=== PATIENT | female | born 1985 | race Caucasian/White ===

== ENCOUNTER 2020-11-05 22:09 | Emergency (ER) | payer OTHER, SELFPAY ==
[2020-11-05 23:02] VITALS: BP 121/77; PULSE 97; RESP 18; O2SAT 99; BMI 25.8
[2020-11-06 01:39] VITALS: RESP 18
--- NOTE | 2020-11-06 02:43 | ED_ITS ---
HPI - Animal Bite General Chief Complaint: Animal Bite Stated Complaint: DOG ATTACK Time Seen by Provider: 11/06/20 02:30 Source: patient Mode of arrival: ambulatory Limitations: no limitations History of Present Illness HPI narrative: Patient comes to emergency room complaining of multiple dog bites. Patient states she works for [employer], she was attacked by a dog in someone's house. Patient states that she does have the address of the place where she got bitten, however while she was being attacked, the dog owners were not either at home, or did not, out to stop the dog attack. Patient was able to free herself, came to the emergency room. Patient complaining of multiple bite wounds to the back of her legs. Patient is not sure when she got her last tetanus shot MD complaint: animal bite Related Data Previous Rx's Medication Instructions Recorded doxycycline hyclate 100 mg PO BID #19 cap 11/06/20 metronidazole 500 mg PO BID #19 tab 11/06/20 Allergies Allergy/AdvReac Type Severity Reaction Status Date / Time amoxicillin Allergy Rash Verified 11/05/20 23:04 Review of Systems Review of Systems: Constitutional : No Weight loss, No Fever, No Chills, No Night Sweats, No Fatigue, No Malaise ENT/Mouth : No Hearing loss, No Ear Pain, No Nasal Congestion, No Sinus Pain, No Hoarseness, No sore throat, No Rhinorrhea, No Swallowing Difficulty Eyes: No Eye Pain, No Swelling, No Redness, No Foreign Body, No Discharge, No Vision Changes Cardiovascular : No Chest Pain, No SOB, No Dyspnea on Exertion, No Orthopnea, No Edema, No Palpitations Respiratory : No Cough, No Sputum, No Wheezing, No Smoke Exposure, No Dyspnea Gastrointestinal : No Nausea, No Vomiting, No Diarrhea, No Constipation, No abdominal Pain, No Hematochezia, No Melena Genitourinary : no irregular bleeding, No Dysuria, No Urinary Frequency, No Hematuria, No Urinary Incontinence, No Urgency, No Flank Pain, No Urinary Flow Changes, No Hesitancy Musculoskeletal : No joint pain, No Myalgias, No Joint Swelling Skin : Dog bites to the back of both legs Neuro : No Weakness, No Numbness, No Paresthesias, No Loss of Consciousness, No Dizziness, No Headache Psych : No Anxiety/Panic, No Depression, No SI/HI/AH/VH, No Social Issues, Heme/Lymph: No Bruising, No Bleeding,No Lymphadenopathy Endocrine : No Polyuria, No Polydipsia, No Temperature Intolerance PMFSH Past Medical History Medical History No known health problems Social History Social History Smoking Status: Unknown if ever smoked Advance Directives: No Physical Exam Vital Signs: Vital Signs: Last Vital Signs Pulse 97 11/05/20 23:02 Resp 18 11/06/20 01:39 BP 121/77 11/05/20 23:02 Pulse Ox 99 11/05/20 23:02 Body Mass Index 25.8 Appearance: Alert. Oriented X3. No acute distress. Eyes: Pupils equal, round and reactive to light. ENT: Pharynx normal. Neck: Normal inspection. Neck supple. No lymph nodes noted. No crepitus CVS: Normal heart rate and rhythm. Pulses normal. Normal S1 and S2 Respiratory: No respiratory distress. Breath sounds normal. No Wheezing. No rales Abdomen: Soft and nontender. No rigidity. No distention. good BS x4 Skin: Patient has multiple dog bites to the back of the left leg and the right leg, accompanied by ecchymosis. Extremities: No lower extremity edema. No lower extremity edema. No Lacerations. No Rash Neuro: Oriented X 3. No motor deficit. No sensory deficit. Moving all extermities. No slurred speech. Course Course Course Narrative: I discussed with the patient that although she has the address of where the dog attack occurred, it is possible that the dog might not be available for quarantine for any reason such as the owners hiding the dog. Therefore, I recommended to the patient to get rabies immune globulin as well as the vaccine, tetanus shot, and antibiotics. Patient agrees with plan Patient is allergic to penicillin, Augmentin was not prescribed, instead, patient was given metronidazole and doxycycline and a prescription as well. Per nursing, Patient was given all information to follow up for the rest of her previous immunizations. Discharge Plan Discharge Clinical Impression: Dog bite Qualifiers: Encounter type: initial encounter Qualified Code(s): W54.0XXA - Bitten by dog, initial encounter Patient Disposition: Home, Self-Care Instructions: Rabies Vaccine (By injection) Additional Instructions: Please follow-up for rest of your rabies immunizations. If you have any signs of infection such as redness, fever, pus drainage, please return to emergency room. Please follow-up with your primary care physician tomorrow. If you have any worsening or new symptoms, please return to the emergency room or call 911 Prescriptions: New metronidazole 500 mg tablet 500 mg PO BID Qty: 19 RF: 0 doxycycline hyclate 100 mg capsule 100 mg PO BID Qty: 19 RF: 0 Stand Alone Forms: Work/School Release
[2020-11-06] MEDS: traMADoL HCL 50 MG TABLET PO (03:34)
[2020-11-06] MEDS: metroNIDAZOLE 500 MG TABLET PO (03:35)
[2020-11-06] MEDS: Rabies Vaccine (PCEC)/PF 1 ML VIAL IM (03:39)
[2020-11-06] MEDS: Rabies Immune Globulin/PF 1,500 UNIT/5 ML VIAL 1496.86 UNIT IM (03:44)
== END 2020-11-06 05:35 | disposition home or self-care (01) ==
PROVIDERS: Emergency Provider Emergency Medicine
DX: S81.852A Open bite, left lower leg, initial encounter (principal); S81.851A Open bite, right lower leg, initial encounter; W54.0XXA Bitten by dog, initial encounter; Y93.89 Activity, other specified; Y92.017 Garden or yard in single-family (private) house as the place of occurrence of the external cause; Y99.0 Civilian activity done for income or pay; Z20.3 Contact with and (suspected) exposure to rabies
CPT/HCPCS: 90375; 90471; 90472; 90675; 90715; 96372; 99284

== ENCOUNTER 2020-11-08 | Outpatient (REF) | payer OTHER, SELFPAY | END 2020-11-08 00:01 | disposition home or self-care (01) | LOC: HO.MDS | PROVIDERS: PCP Family Medicine; Visit Provider Emergency Medicine | DX: Z29.14 Encounter for prophylactic rabies immune globulin (principal); S80.872D Other superficial bite, left lower leg, subsequent encounter; S80.871D Other superficial bite, right lower leg, subsequent encounter; W54.0XXD Bitten by dog, subsequent encounter; Z20.3 Contact with and (suspected) exposure to rabies | CPT/HCPCS: 90471; 90675 ==